=== PATIENT | male | born 1945 | race Caucasian/White ===

== ENCOUNTER 2016-07-02 10:00 | Day surgery (SDC) | payer OTHER ==
[~2016-07-02] VITALS: Ht 175.3 cm; Wt 88.0 kg
[~2016-07-02 10:00] MED LIST: 0.9% Sodium Chloride 1,000 ML IV SCH; ASPI-973 PO; CHOL200025 PO; ENAL2.5T PO; LIP40 PO; METF500T4 PO; Sodium Chloride LOK Flush 10 mL Syringe IV PRN; fentaNYL-PF 50 mCg/mL 2 mL Inj IVPUSH PRN
[2016-07-02 10:41] VITALS: BP 140/82; PULSE 68; RESP 16; O2SAT 96
[2016-07-02 11:27] VITALS: BP 137/82; PULSE 65; RESP 15; O2SAT 92
[2016-07-02 11:37] VITALS: BP 132/76; PULSE 59; RESP 12; O2SAT 91
[2016-07-02 11:39] VITALS: BP 121/82; PULSE 74; RESP 14; O2SAT 94
--- NOTE | 2016-07-02 11:45 | ENDO ---
[address] [address] ENDOSCOPY PROCEDURE PATIENT: HECTOR CLEMENTE : 1945 MR#: [id number] ADMIT: 07/02/2016 JOB ID: [id number] DATE OF SERVICE: 07/02/2016 TYPE OF OPERATION: Colonoscopy. PREOPERATIVE DIAGNOSIS: History of colon polyps. POSTOPERATIVE DIAGNOSES: 1. Sigmoid and transverse colon diverticulosis, mild, nonbleeding. 2. Small internal hemorrhoids. ANESTHESIA: Fentanyl 100 mcg, Versed 4 mg IV administered. DESCRIPTION OF PROCEDURE: After risks and benefits were explained to the patient, informed consent was obtained. After anesthesia administered, colonoscope was then inserted from the rectum to cecum. Mucosa carefully examined. Prep of the patient was excellent. After procedure was done, the scope withdrawn and the procedure terminated. FINDINGS: Upon inspection of the anus, no masses, hemorrhoids, ulcers, or fissures that were seen. Throughout the entire examination, there was mild sigmoid and transverse colon diverticulosis, nonbleeding. No polyps or masses were seen. Retroflexion showed small internal hemorrhoids. IMPRESSION: 1. Small internal hemorrhoids. 2. Mild sigmoid and transverse colon diverticulosis. RECOMMENDATIONS: High-fiber diet. Repeat colonoscopy in five years given history of colon polyps.
== END 2016-07-02 23:59 | disposition home or self-care (01) ==
LOC: END 10:00
PROVIDERS: ATTEND Internal Medicine Gastroenterology
DX: Z12.11 Encounter for screening for malignant neoplasm of colon (principal); Z86.010 Personal history of colon polyps; K57.30 Diverticulosis of large intestine without perforation or abscess without bleeding; K64.8 Other hemorrhoids; E11.9 Type 2 diabetes mellitus without complications; I10 Essential (primary) hypertension; Z79.82 Long term (current) use of aspirin; Z79.84 Long term (current) use of oral hypoglycemic drugs
CPT/HCPCS: G0105; G0500; J2250; J7030